=== PATIENT | male | born 1945 | race Caucasian/White ===

== ENCOUNTER 2020-06-02 10:33 | Emergency (ER) | payer MEDICARE ==
[2020-06-02] MEDS ORDERED: Sodium Chloride 0.9% 1000 ML 1,000 ML ONE (11:07)
[2020-06-02] MEDS ORDERED: Sodium Chloride 0.9% 1000 ML 1,000 ML IV SCH (11:15)
--- NOTE | 2020-06-02 11:30 | ERPHSYRPT ---
- History of Present Illness Time Seen by Provider: 06/02/20 11:24 Source: patient Exam Limitations: no limitations Patient Subjective Stated Complaint: HTN Triage Nursing Assessment: pt to ED c/o HTN at home. denies CP or new SOB. reports BP reading 230 systolic at home at 0730. BP on arrival to ED 138/63. lung sounds clear, heart sounds clear, bowel sounds active. also reports hyperglycemia at home 332. FSBS on arrival 209. has taken meds this am around same time as taking BP. Physician History: Patient is 75-year-old male came to the emergency room with complaining of high blood pressure which was reported 200 over home 100 at home, but at emergency room it was 138/83 and patient denies any other symptoms including chest pain nausea vomiting dizziness or also denies any COVID exposure. Timing/Duration: today Activities at Onset: activity Modifying Factors: Improves With: nothing Nitro Today/Relief: no nitro taken today Aspirin Treatment Today: no aspirin today Associated Symptoms: malaise, weakness, No nausea, No vomiting, No abdominal pain, No shortness of breath, No heartburn, No diaphoresis, No cough, No chest pain, No fever, No headaches Allergies/Adverse Reactions: No Known Drug Allergies Allergy (Unverified 06/02/20 11:05) Home Medications: Acetaminophen 325 mg [Tylenol 325 mg] 325 mg PO Q4-6HPRN PRN 06/02/20 [History] Chlorthalidone 50 mg PO DAILY 06/02/20 [History] Furosemide 40 mg [Lasix 40 MG] 40 mg PO BID 06/02/20 [History] Glipizide 5 mg [Glucotrol 5 MG] 5 mg PO DAILY 06/02/20 [History] Losartan Potassium 100 mg PO DAILY 06/02/20 [History] Hx Tetanus, Diphtheria Vaccination/Date Given: No Hx Influenza Vaccination/Date Given: Yes Hx Pneumococcal Vaccination/Date Given: Yes Travel Risk - International Travel Have you traveled outside of the country in past 3 weeks: No - Coronavirus Screening Are you exhibiting any of the following symptoms?: No Close contact with a COVID-19 positive Pt in past 14-21 Days: No - Review of Systems Constitutional: Weakness, No Fever, No Chills Eyes: No Symptoms Ears, Nose, & Throat: No Symptoms Respiratory: No Cough, No Dyspnea Cardiac: Edema, No Chest Pain, No Palpitations, No Syncope Abdominal/Gastrointestinal: Hematochezia, No Abdominal Pain, No Nausea, No Vomiting, No Diarrhea Genitourinary Symptoms: No Dysuria Musculoskeletal: No Back Pain, No Neck Pain Skin: No Rash Neurological: No Dizziness, No Focal Weakness, No Sensory Changes Psychological: No Symptoms Endocrine: No Symptoms All Other Systems: Reviewed and Negative - Past Medical History Pertinent Past Medical History: Yes Neurological History: No Pertinent History ENT History: No Pertinent History Cardiac History: Hypertension Respiratory History: No Pertinent History Endocrine Medical History: Diabetes Type II Musculoskeletal History: No Pertinent History GI Medical History: GI Bleed History: No Pertinent History Psycho-Social History: No Pertinent History Male Reproductive Disorders: No Pertinent History Other Medical History: 2017 - Past Surgical History Past Surgical History: Yes Neuro Surgical History: No Pertinent History Cardiac: No Pertinent History Respiratory: No Pertinent History Gastrointestinal: Cholecystectomy Genitourinary: Other Musculoskeletal: No Pertinent History Male Surgical History: Prostate Surgery Other Surgical History: renal stent, lamenectomy - Social History Smoking Status: Never smoker Exposure to second hand smoke: No Drug Use: none Patient Lives Alone: No - Nursing Vital Signs Nursing Vital Signs: Initial Vital Signs Temperature 97.8 F 06/02/20 10:55 Pulse Rate 79 06/02/20 10:55 Respiratory Rate 17 06/02/20 10:55 Blood Pressure 138/63 06/02/20 10:55 O2 Sat by Pulse Oximetry 100 06/02/20 10:55 Pain Scale Pain Intensity 0 - Physical Exam General Appearance: no apparent distress, alert Eye Exam: PERRL/EOMI, eyes nml inspection Ears, Nose, Throat Exam: normal ENT inspection, moist mucous membranes Neck Exam: normal inspection, non-tender, supple Respiratory Exam: crackles/rales, No respiratory distress Cardiovascular Exam: regular rate/rhythm, normal heart sounds, No edema, No other (3 + pedal edema) Gastrointestinal/Abdomen Exam: soft, No tenderness, No mass Back Exam: normal inspection, No CVA tenderness, No vertebral tenderness Extremity Exam: normal inspection, normal range of motion Neurologic Exam: alert, oriented x 3, cooperative, normal mood/affect, nml cere bellar function, sensation nml, No motor deficits Skin Exam: normal color, warm, dry Lymphatic Exam: No adenopathy SpO2: 100 - Course Nursing assessment & vital signs reviewed: Yes EKG Interpreted by Me: Sinus Rhythm Ordered Tests: Active Orders 24 hr Category Date Time Status Police Lieutenant STAT Care 06/02/20 11:03 Active EKG-ER Only STAT Care 06/02/20 11:02 Active IV Insertion STAT Care 06/02/20 11:02 Active Oxygen-ED Only Nasal Cannula 2 lpm Care 06/02/20 11:02 Active CHEST 1 VIEW (PORTABLE) Stat Exams 06/02/20 11:03 Taken CBC W DIFF Stat Lab 06/02/20 11:14 Completed CMP Stat Lab 06/02/20 11:14 Completed MAGNESIUM Stat Lab 06/02/20 11:14 Completed NT PRO BNP Stat Lab 06/02/20 11:14 Completed TROPONIN Q3H Lab 06/02/20 11:14 Completed TROPONIN Q3H Lab 06/02/20 14:15 Ordered TROPONIN Q3H Lab 06/02/20 17:15 Ordered TROPONIN Q3H Lab 06/02/20 20:15 Ordered TROPONIN Q3H Lab 06/02/20 23:15 Ordered UA W/RFX UR CULTURE Stat Lab 06/02/20 11:03 Uncollected Medication Summary Generic Name Dose Route Start Last Admin Trade Name Freq PRN Reason Stop Dose Admin Sodium Chloride 1,000 mls @ 50 mls/hr 06/02/20 11:15 06/02/20 11:10 Sodium Chloride 0.9% 1000 Ml IV 07/02/20 11:14 50 mls/hr .Q20H ALEXA Administration Lab/Rad Data: Laboratory Result Diagrams 06/02/20 11:14 06/02/20 11:14 Laboratory Results 06/02/20 06/02/20 06/02/20 Range/Units 11:14 11:14 11:14 WBC 5.1 (4.0-10.5) K/mm3 RBC 2.26 L (4.1-5.6) M/mm3 Hgb 6.4 L* (12.5-18.0) gm/dl Hct 22.9 L (42-50) % MCV 101.3 H (78-100) fl MCH 28.3 (26-32) pg MCHC 27.9 L (32-36) g/dl RDW 17.5 H (11.5-14.0) % Plt Count 102 L (150-450) K/mm3 MPV 11.6 H (7.5-11.0) fl Gran % 81.5 H (36.0-66.0) % Eos # (Auto) 0.12 (0-0.5) Absolute Lymphs (auto) 0.45 L (1.0-4.6) Absolute Monos (auto) 0.37 (0.0-1.3) Lymphocytes % 8.8 L (24.0-44.0) % Monocytes % 7.2 (0.0-12.0) % Eosinophils % 2.3 (0.00-5.0) % Basophils % 0.2 (0.0-0.4) % Absolute Granulocytes 4.19 (1.4-6.9) Basophils # 0.01 (0-0.4) Sodium 139 (137-145) mmol/L Potassium 4.0 (3.5-5.1) mmol/L Chloride 111 H (98-107) mmol/L Carbon Dioxide 21 L (22-30) mmol/L Anion Gap 11.0 (5-15) MEQ/L BUN 55 H (9-20) mg/dL Creatinine 2.84 H (0.66-1.25) mg/dL Estimated GFR 23.2 ML/MIN Glucose 202 H (74-106) mg/dL Calcium 7.9 L (8.4-10.2) mg/dL Magnesium 2.6 H (1.6-2.3) mg/dL Total Bilirubin 0.70 (0.2-1.3) mg/dL AST 22 (17-59) U/L ALT 18 (0-50) U/L Alkaline Phosphatase 128 H (38-126) U/L Troponin I 0.021 (0.000-0.034) ng/mL NT-Pro-B Natriuret Pep 527 (0-1800) pg/mL Serum Total Protein 6.0 L (6.3-8.2) g/dL Albumin 2.9 L (3.5-5.0) g/dL - Progress Progress: unchanged Air Movement: good Progress Note: 06/02/20 12:37 Patient hemoglobin is 6.5. Patient already has been tested for Hemoccult positive stool. Patient has been scheduled for EGD and colonoscopy on Thursday at [facility] by Dr. Vogt. I talked to patient about getting him transferred to [facility] as he will need a couple 3 units of blood transfusion as well as much more emergent endoscopy. But patient refused for admission as well as transfer he states that he wants to go home and then he will go on Thursday for EGD. I explained to him the seriousness of his problem including acute GI bleed. But he insisted on going home so I told him it will be AGAINST MEDICAL ADVICE. He is also advised if symptoms start getting worse he needs to go to the emergency room or come back here or go to the closest emergency room including [facility]. Patient is alert awake underst and all my conversation. We will let nursing staff know about him signing AGAINST MEDICAL ADVICE. Blood Culture(s) Obtained: No Antibiotics given: No Counseled pt/family regarding: lab results, diagnosis, need for follow-up, rad results - Departure Departure Disposition: AMA (I discussed with the patient at length about the seriousness of his problem, but he still wants to sign AGAINST MEDICAL ADVICE.) Clinical Impression: Anemia Qualifiers: Iron deficiency anemia type: chronic blood loss Condition: Fair Critical Care Time: Yes Critical Care Time(excluding separately billable procedures): Critical 30-74 mins Referrals: ANAMARIA KAPADIA [Primary Care Provider] -
[2020-06-02 11:34] LABS: Absolute Neutrophil Ct (ANC) 4.19 (1.4-6.9); BASOPHIL % 0.2 % (0.0-0.4); Basophil (Absolute #) 0.01 (0-0.4); Eosinophil % 2.3 % (0.00-5.0); Eosinophil (Absolute #) 0.12 (0-0.5); Hematocrit 22.9 % (42-50); Lymphocyte (Absolute #) 0.45 (1.0-4.6); Lymphocytes % 8.8 % (24.0-44.0); Mean Cell Volume 101.3 fl (78-100); Mean Corpuscular Hemoglobin 28.3 pg (26-32); Mean Corpuscular Hgb Concent. 27.9 g/dl (32-36); Mean Platelet Volume 11.6 fl (7.5-11.0); Monocyte (Absolute #) 0.37 (0.0-1.3); Monocytes % 7.2 % (0.0-12.0); Neutrophil % 81.5 % (36.0-66.0); Platelet Count 102 K/mm3 (150-450); Red Blood Count 2.26 M/mm3 (4.1-5.6); Red Cell Distribution Width 17.5 % (11.5-14.0); White Blood Count 5.1 K/mm3 (4.0-10.5)
[2020-06-02 11:43] LABS: Hemoglobin 6.4 gm/dl (12.5-18.0)
[2020-06-02 12:17] LABS: ALBUMIN 2.9 g/dL (3.5-5.0); BILIRUBIN,TOTAL 0.7 mg/dL (0.2-1.3); Calcium 7.9 mg/dL (8.4-10.2); Creatinine 1 2.84 mg/dL (0.66-1.25); MAGNESIUM 2.6 mg/dL (1.6-2.3)
[2020-06-02 12:58] VITALS: BP 134/86; PULSE 76; O2SAT 98
[2020-06-02 17:23] LABS: Slide Review 1 YES
--- NOTE | 2020-06-02 19:25 | XRAY ---
Indication: Elevated blood pressure. Comparison: August 25, 2019. Portable chest remains clear. Heart is not enlarged for AP portable technique. Bony thorax intact again with mild degenerative changes. Impression: Stable nonacute chest.
== END 2020-06-02 12:53 | disposition left against medical advice (07) ==
LOC: ED 10:33
DX: D50.0 Iron deficiency anemia secondary to blood loss (chronic) (principal)
CPT/HCPCS: 36000; 36415; 71045; 80053; 83735; 83880; 84484; 85025; 93005; 93041; 96360; 99284; 99291

== ENCOUNTER 2020-12-09 10:15 | Emergency (ER) | payer MEDICARE ==
[2020-12-09] MEDS ORDERED: Sodium Chloride 0.9% 1000 ML 1,000 ML IV SCH (10:45)
--- NOTE | 2020-12-09 10:47 | ERPHSYRPT ---
- History of Present Illness Time Seen by Provider: 12/09/20 10:40 Source: patient, family Exam Limitations: clinical condition Patient Subjective Stated Complaint: bleeding from dialysis port site Triage Nursing Assessment: pt to ED c/o bleeding from port site, son reports attempting to get shirt off pt this morning, port may have been tugged on. pt denies pain at port site or general body pain. bleeding minimal and controlled at port. pt also has skin tear on posterior upper arm from this morning as well. pt denies being on blood thinners. hx anemia and hx of ammonia elevation. Physician History: pt was here at blood draw but did not find orders for a planned transfusion tomorrow with stable hgb in 6 range for him; He went to [facility] and had some bleeding at his dialysis site - which had stopped by the time of presentation to ER on this exam. He has been having symptoms of reduced mental status like his ammonia is elevated . He has chronic liver failure which has thrown off his clotting and elevated his ammonia frequently and takes lactulose daily for proph of this. He has no other symptoms or complaints at this time. A positive asterixis wrist flap with extension is noted. Timing/Duration: today Severity: moderate Modifying Factors: Improves With: nothing Associated Symptoms: other (some decreased mentation nonfocal) Allergies/Adverse Reactions: acetaminophen [From Vicodin] Allergy (Severe, Verified 12/09/20 10:36) Difficulty Breathing hydrocodone [From Vicodin] Allergy (Severe, Verified 12/09/20 10:36) Difficulty Breathing levofloxacin [From Levaquin] Allergy (Severe, Verified 12/09/20 10:36) Difficulty Breathing Home Medications: Acetaminophen 325 mg [Tylenol 325 mg] 325 mg PO Q4-6HPRN PRN 06/02/20 [History] Lactulose [Lactulose 20 gm/30Ml Ud Cup] 20 gm PO BID 12/09/20 [History] Midodrine HCl 5 mg [Proamatine 5 mg] 5 mg PO DAILY 12/09/20 [History] Rifaximin [Xifaxan] 550 mg PO DAILY 12/09/20 [History] Hx Tetanus, Diphtheria Vaccination/Date Given: No Hx Influenza Vaccination/Date Given: Yes Hx Pneumococcal Vaccination/Date Given: Yes Travel Risk - International Travel Have you traveled outside of the country in past 3 weeks: No - Coronavirus Screening Are you exhibiting any of the following symptoms?: No Close contact with a COVID-19 positive Pt in past 14-21 Days: No - Review of Systems Constitutional: No Fever, No Chills Eyes: No Symptoms Ears, Nose, & Throat: No Symptoms Respiratory: No Cough, No Dyspnea Cardiac: No Chest Pain, No Edema, No Syncope Abdominal/Gastrointestinal: No Abdominal Pain, No Nausea, No Vomiting, No Diarrhea Genitourinary Symptoms: No Dysuria Musculoskeletal: No Back Pain, No Neck Pain Skin: No Symptoms, No Rash Neurological: Lethargy, No Dizziness, No Focal Weakness, No Sensory Changes Psychological: No Symptoms Endocrine: No Symptoms Hematologic/Lymphatic: Anemia, Easy Bleeding Immunological/Allergic: No Symptoms All Other Systems: Reviewed and Negative - Past Medical History Pertinent Past Medical History: Yes Neurological History: No Pertinent History ENT History: No Pertinent History Cardiac History: Hypertension Respiratory History: No Pertinent History Endocrine Medical History: Diabetes Type II Musculoskeletal History: No Pertinent History GI Medical History: GI Bleed History: No Pertinent History Psycho-Social History: No Pertinent History Male Reproductive Disorders: No Pertinent History Other Medical History: 2017 - Past Surgical History Past Surgical History: Yes Neuro Surgical History: No Pertinent History Cardiac: No Pertinent History Respiratory: No Pertinent History Gastrointestinal: Cholecystectomy Genitourinary: Other Musculoskeletal: No Pertinent History Male Surgical History: Prostate Surgery Other Surgical History: renal stent, lamenectomy. dialysis catheter R chest - Social History Smoking Status: Never smoker Exposure to second hand smoke: No Drug Use: none Patient Lives Alone: No - Nursing Vital Signs Nursing Vital Signs: Initial Vital Signs Temperature 97.7 F 12/09/20 10:20 Blood Pressure 103/61 12/09/20 10:20 Pain Scale Pain Intensity 0 - Physical Exam General Appearance: no apparent distress, lethargy Eye Exam: PERRL/EOMI, eyes nml inspection Ears, Nose, Throat Exam: normal ENT inspection, TMs normal, pharynx normal, moist mucous membranes Neck Exam: normal inspection, non-tender, supple, full range of motion Respiratory Exam: normal breath sounds, lungs clear, No respiratory distress Cardiovascular Exam: regular rate/rhythm, normal heart sounds, normal peripheral pulses Gastrointestinal/Abdomen Exam: soft, normal bowel sounds, No tenderness, No mass Rectal Exam: deferred Back Exam: normal inspection, normal range of motion, No CVA tenderness, No vertebral tenderness Extremity Exam: normal inspection, normal range of motion, pelvis stable Neurologic Exam: alert, oriented x 3, cooperative, normal mood/affect, nml cere bellar function, nml station & gait, sensation nml, No motor deficits Skin Exam: normal color, warm, dry, No rash Lymphatic Exam: No adenopathy SpO2 Interpretation: normal O2 Delivery: Room Air - Course Nursing assessment & vital signs reviewed: Yes EKG Interpreted by Me: Sinus Rhythm, Left [place] Deviation, Non-specific ST Changes Ordered Tests: Active Orders 24 hr Category Date Time Status EKG-ER Only STAT Care 12/09/20 10:34 Active IV Insertion STAT Care 12/09/20 10:34 Active CBC W DIFF Stat Lab 12/09/20 10:50 Completed CMP Stat Lab 12/09/20 10:50 Completed Lactic Acid Stat Lab 12/09/20 10:56 Completed PROTIME WITH INR Stat Lab 12/09/20 10:50 Completed PTT Stat Lab 12/09/20 10:50 Completed UA W/RFX UR CULTURE Stat Lab 12/09/20 10:35 Ordered Medication Summary Generic Name Dose Route Start Last Admin Trade Name Freq PRN Reason Stop Dose Admin Sodium Chloride 1,000 mls @ 100 mls/hr 12/09/20 10:45 12/09/20 11:17 Sodium Chloride 0.9% 1000 Ml IV 01/08/21 10:44 100 mls/hr .Q10H ALEXA Administration Lab/Rad Data: Laboratory Result Diagrams 12/09/20 10:50 12/09/20 10:50 Laboratory Results 12/09/20 12/09/20 12/09/20 Range/Units 11:35 10:56 10:50 WBC (4.0-10.5) K/mm3 RBC (4.1-5.6) M/mm3 Hgb (12.5-18.0) gm/dl Hct (42-50) % MCV (78-100) fl MCH (26-32) pg MCHC (32-36) g/dl RDW (11.5-14.0) % Plt Count (150-450) K/mm3 MPV (7.5-11.0) fl Gran % (36.0-66.0) % Eos # (Auto) (0-0.5) Absolute Lymphs (auto) (1.0-4.6) Absolute Monos (auto) (0.0-1.3) Lymphocytes % (24.0-44.0) % Monocytes % (0.0-12.0) % Eosinophils % (0.00-5.0) % Basophils % (0.0-0.4) % Absolute Granulocytes (1.4-6.9) Basophils # (0-0.4) PT (8.83-12.87) SECONDS INR (0.8-3.0) APTT 31.7 (24.1-36.1) SECONDS Sodium (137-145) mmol/L Potassium (3.5-5.1) mmol/L Chloride (98-107) mmol/L Carbon Dioxide (22-30) mmol/L Anion Gap (5-15) MEQ/L BUN (9-20) mg/dL Creatinine (0.66-1.25) mg/dL Estimated GFR ML/MIN Glucose (74-106) mg/dL Lactic Acid 6.4 H (0.4-2.0) Calcium (8.4-10.2) mg/dL Total Bilirubin (0.2-1.3) mg/dL AST (17-59) U/L ALT (0-50) U/L Alkaline Phosphatase (38-126) U/L Ammonia 123 H (9-30) umol/L Serum Total Protein (6.3-8.2) g/dL Albumin (3.5-5.0) g/dL 12/09/20 12/09/20 12/09/20 Range/Units 10:50 10:50 10:50 WBC 6.1 (4.0-10.5) K/mm3 RBC 2.08 L (4.1-5.6) M/mm3 Hgb 5.7 L* (12.5-18.0) gm/dl Hct 20.8 L (42-50) % MCV 100.0 (78-100) fl MCH 27.4 (26-32) pg MCHC 27.4 L (32-36) g/dl RDW 17.0 H (11.5-14.0) % Plt Count 60 L (150-450) K/mm3 MPV 12.2 H (7.5-11.0) fl Gran % 79.7 H (36.0-66.0) % Eos # (Auto) 0.03 (0-0.5) Absolute Lymphs (auto) 0.68 L (1.0-4.6) Absolute Monos (auto) 0.52 (0.0-1.3) Lymphocytes % 11.1 L (24.0-44.0) % Monocytes % 8.5 (0.0-12.0) % Eosinophils % 0.5 (0.00-5.0) % Basophils % 0.2 (0.0-0.4) % Absolute Granulocytes 4.88 (1.4-6.9) Basophils # 0.01 (0-0.4) PT 17.1 H (8.83-12.87) SECONDS INR 1.51 (0.8-3.0) APTT (24.1-36.1) SECONDS Sodium 134 L (137-145) mmol/L Potassium 4.0 (3.5-5.1) mmol/L Chloride 98 (98-107) mmol/L Carbon Dioxide 22 (22-30) mmol/L Anion Gap 17.8 H (5-15) MEQ/L BUN 39 H (9-20) mg/dL Creatinine 6.59 H (0.66-1.25) mg/dL Estimated GFR 8.8 ML/MIN Glucose 187 H (74-106) mg/dL Lactic Acid (0.4-2.0) Calcium 7.5 L (8.4-10.2) mg/dL Total Bilirubin 0.90 (0.2-1.3) mg/dL AST 30 (17-59) U/L ALT 17 (0-50) U/L Alkaline Phosphatase 189 H (38-126) U/L Ammonia (9-30) umol/L Serum Total Protein 5.5 L (6.3-8.2) g/dL Albumin 2.3 L (3.5-5.0) g/dL - Progress Progress: improved, re-examined Progress Note: 12/09/20 12:[address] Hess at [facility] hospitalist and pt and family and will transfer for Dialysis , transfusion, and Tx elevated Ammonia there. Discussed with Dr.: Other (Dr Hess at [facility]) Counseled pt/family regarding: lab results, diagnosis, need for follow-up - Departure Departure Disposition: Transfer Clinical Impression: Anemia, Chronic renal failure, Chronic Liver failure- elevated ammonia, Anemia requiring transfusion Condition: Good Critical Care Time: No Referrals: Provider,Unknown [Primary Care Provider] -
[2020-12-09] MEDS ORDERED: Sodium Chloride 0.9% 1000 ML 1,000 ML ONE (11:17)
[2020-12-09 11:32] LABS: INR 1.51 (0.8-3.0); PROTIME 17.1 SECONDS (8.83-12.87)
[2020-12-09 11:33] LABS: Absolute Neutrophil Ct (ANC) 4.88 (1.4-6.9); BASOPHIL % 0.2 % (0.0-0.4); Basophil (Absolute #) 0.01 (0-0.4); Eosinophil % 0.5 % (0.00-5.0); Eosinophil (Absolute #) 0.03 (0-0.5); Hematocrit 20.8 % (42-50); Lymphocyte (Absolute #) 0.68 (1.0-4.6); Lymphocytes % 11.1 % (24.0-44.0); Mean Corpuscular Hemoglobin 27.4 pg (26-32); Mean Corpuscular Hgb Concent. 27.4 g/dl (32-36); Mean Platelet Volume 12.2 fl (7.5-11.0); Monocyte (Absolute #) 0.52 (0.0-1.3); Monocytes % 8.5 % (0.0-12.0); Neutrophil % 79.7 % (36.0-66.0); Platelet Count 60 K/mm3 (150-450); Red Blood Count 2.08 M/mm3 (4.1-5.6); White Blood Count 6.1 K/mm3 (4.0-10.5)
[2020-12-09 11:37] LABS: Hemoglobin 5.7 gm/dl (12.5-18.0)
[2020-12-09 11:48] LABS: ALBUMIN 2.3 g/dL (3.5-5.0); ANION GAP 17.8 MEQ/L (5-15); BILIRUBIN,TOTAL 0.9 mg/dL (0.2-1.3); Calcium 7.5 mg/dL (8.4-10.2); Creatinine 1 6.59 mg/dL (0.66-1.25); EST GLOMERULAR FILTRATION RATE 8.8 ML/MIN; Total Protein 5.5 g/dL (6.3-8.2)
[2020-12-09 12:36] VITALS: BP 133/73; O2SAT 99
[2020-12-09 12:49] LABS: ABO TYPING A; Antibody Screen NEGATIVE (NEGATIVE); RH TYPING POSITIVE
[2020-12-09 13:00] LABS: Slide Review 1 YES
[2020-12-09 13:33] VITALS: PULSE 63
== END 2020-12-09 13:47 | disposition short-term general hospital (02) ==
LOC: ED 10:15
DX: D64.9 Anemia, unspecified (principal); N18.9 Chronic kidney disease, unspecified; K72.10 Chronic hepatic failure without coma; R79.89 Other specified abnormal findings of blood chemistry; R58 Hemorrhage, not elsewhere classified; E11.9 Type 2 diabetes mellitus without complications; I10 Essential (primary) hypertension; Z79.899 Other long term (current) drug therapy
CPT/HCPCS: 36000; 36415; 80053; 82140; 83605; 85025; 85610; 85730; 86850; 86900; 86901; 93005; 99285